=== PATIENT | male | born 1940 | race Caucasian/White ===

== ENCOUNTER → 2024-07-12 11:05 | Outpatient (REF) | payer MEDICARE, OTHER, SELFPAY | LOC: RCS 11:05 | PROVIDERS: ATTENDING PHYSICIAN Internal Medicine Cardiovascular Disease; FAMILY PHYSICIAN Family Medicine | DX: Z95.1 Presence of aortocoronary bypass graft (principal); Z98.890 Other specified postprocedural states; I10 Essential (primary) hypertension; R06.09 Other forms of dyspnea; I45.10 Unspecified right bundle-branch block | CPT/HCPCS: 93306 ==